=== PATIENT | male | born 1960 | race Caucasian/White ===

== ENCOUNTER 2024-09-13 12:01 | Emergency (ER) | payer BC, SELFPAY ==
--- NOTE | ~2024-09-13 | CT_ITS ---
Procedure: CTA abd aorta runoff Ordering provider: Annalisa Caro MD History: . Concern for ischemic left lower extremity . Comparison: None. Technique: CT angiogram abdomen and pelvis was performed following timed intravenous injection of con trast. Thin slice axial images and reformatted coronal images were obtained. Three dimensional reform atted images were also obtained using a [employer] workstation. Radiation reduction technique utilized. The dose-length product was 1418.39 mGy-cm. 150 mL Omnipaque 350 was given IV. FINDINGS: Visualized lower chest: Dependent atelectatic changes. Calcified granuloma in the right lower lobe an d lingula. UPPER ABDOMINAL ORGANS: Liver: Fat infiltration. Gallbladder: Normal. Spleen: Normal. Stomach: Normal. Pancreas: Normal. Slightly prominent pancreatic duct. Adrenals: Normal. Kidneys: Enhancing mass is seen in the right kidney lower pole suggestive of renal cell carcinoma bonita suring 2.2 x 2.2 cm. PELVIC ORGANS: The bladder is normal. Slightly enlarged prostate. BOWEL AND MESENTERY: Colon: No evidence of diverticulitis. Normal appendix. Small Bowel: Normal. No obstruction. Peritoneum/mesentery: No free air or free fluid. No mesenteric lymphadenopathy. RETROPERITONEUM: No retroperitoneal lymphadenopathy. ABDOMINAL AORTA: Atherosclerotic changes are seen in the distal aorta. No dissection. Lucency seen in the portal vein is most likely mixing of blood. Clinical correlation and follow-up ad vised. ILIAC ARTERIES AND BRANCHING VESSELS: Atherosclerotic changes in the common iliac arteries with focal dissection in the proximal right iliac artery. narrowing of the left external iliac artery by about 40-50%. Narrowing of the right external iliac artery with about 50% is also noted. RENAL ARTERIES: Normal caliber. OTHER BRANCHING VESSELS OF THE ABDOMINAL AORTA AND THE MESENTERIC ARTERIES: Normal. The superficial soft tissues of the abdomen and pelvis are normal. Age appropriate degenerative cota es of the spine. LOWER EXTREMITIES: COMMON FEMORAL ARTERIES: Mild atherosclerotic changes with no significant narrowing. FEMORAL ARTERIES: Mild narrowing in the distal femoral arteries of about 20%. BILATERAL PROFUNDA FEMORA: Normal. POPLITEAL ARTERIES: Normal. TRIFURCATION AND THE POSTERIOR/ANTERIOR TIBIAL AND PERONEAL ARTERIES: Normal. FLOW TO THE FOOT: Flow demonstrated within the anterior and posterior tibial arteries below the ankle . BONES AND SOFT TISSUES: Unremarkable. IMPRESSION: Right lower pole mass suggestive of measuring 2.2 x 2.2 cm. renal cell carcinoma. Atherosclerotic changes with narrowing of the external iliac arteries near to the bifurcation of the common carotid artery by about 40-50%. 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 Flow is seen down to the level of the ankle joints. About 20% narrowing seen in the distal SFA. Fat infiltration of the liver. Reviewed, dictated and finalized at location A. IMPRESSION: Right lower pole mass suggestive of measuring 2.2 x 2.2 cm. renal cell carcinom a. Atherosclerotic changes with narrowing of the external iliac arteries near to t he bifurcation of the common carotid artery by about 40-50%. Focal dissection s een at the origin of the right. Flow is seen down to the level of the ankle joints. About 20% narrowing seen in the distal SFA. Fat infiltration of the liver.
--- NOTE | ~2024-09-13 | US_ITS ---
ULTRASOUND ANKLE BRACHIAL INDEX Ordering provider: Annalisa Caro MD History: . Concern for ischemic limb . Comparison: None. FINDINGS: Right brachial systolic blood pressure: 142 mmHg Left brachial systolic blood pressure: 148 mmHg Right ankle systolic blood pressure: 131 mmHg Left ankle systolic blood pressure: 156 mmHg Right ankle/arm index (DANNIELLE): 0.89 Left ankle/arm index (DANNIELLE): 1.05 Note regarding DANNIELLE: --Normal= 1.0 or slightly greater. --Claudication (moderate stenosis or occlusive state)= 0.6 to 0.9. --Rest pain (severe occlusive states)= 0.5 or less. IMPRESSION: Moderate stenosis or occlusive state on the right side. Normal left DANNIELLE. Reviewed, dictated and finalized at location A.
[2024-09-13 12:03] VITALS: BP 154/85; PULSE 84; RESP 20; TEMP 36.1; O2SAT 95
--- OUTSIDE RECORDS SUMMARY | 2024-09-13 12:04 | XMS_ITS | Clinical Summary ---
Author Organization [facility] Address [address] [place] [address] Care Team Providers Care Water Meter Reader Name Role Phone Unavailable Primary Care Provider Unavailabl e Social History Tobacco Use Types Packs/Day Years Used Date Smoking Tobacco: Never Assessed Sex and Gender Information Value Date Recorded Sex Assigned at Not on file Legal Sex Male 5:01 PM CDT Gender Identity Not on file Sexual Orientation Not on file Plan of Treatment Health Maintenance Due Date Last Done Comments Colorectal Cancer Screening Colonoscopy (10 Years) 1958 Hepatitis C 1976 DTaP, Tdap and Td Vaccines ( 1 - Tdap) 1977 Pneumococcal Vaccine: 50+ Ye ars (1 of 1 - PCV) 2008 Zoster Vaccines (1 of 2) 2008 COVID-19 Vaccine ( - 2023-2 5 season) 2023 RSV Immunization or 60+ Years (1 - 1-dose 75+ series) 2033 Meningococcal B Vaccine Aged Out No l onger eligible based on patient's age to complete this topic Meningococcal Vaccine Aged Out No angelito liliya eligible based on patient's age to complete this topic RSV Immunizations Under 20 Months Aged Out No longer eligible based on patient's age to complete this topic
--- OUTSIDE RECORDS SUMMARY | 2024-09-13 12:04 | XMS_ITS | CONTINUITY OF CARE DOCUMENT ---
Author Name breanna carlos Address Unknown Organization [facility] Address [id number] [place] [address] [address] [place] [address] Phone [phone] Care Team Providers Care Coat Operator Insulator Name Role Phone breanna carlos Unavailable Unavailable
[2024-09-13 13:15] VITALS: BP 136/88; PULSE 61; RESP 16; O2SAT 96
--- NOTE | 2024-09-13 13:54 | ED.GENADULT ---
HPI - General Adult General Chief complaint: Unspecified Stated complaint: sent by PCP after abnormal CT Time Seen by Provider: 09/13/24 13:00 Source: patient and family (partner) Mode of arrival: ambulatory Limitations: no limitations History of Present Illness HPI narrative: Patient presents after being sent by his primary care physician Dr. Watson whom he saw today. Patient complaining left-sided back buttock pain that radiates into his left leg. He reports left leg being numb particularly distally, from the knee down. He to [place] emergency department on Thursday CT scan performed but nothing was identified. No incontinence bowel or bladder. No DVT or PE. He prescribed Oxy and he took a dose at 10:30 a.m. and 12 noon and notes that only through taking these 2 doses today is his pain slightly better than it has been. Not on anticoagulation. He takes no other medications at home at baseline. He is a new patient to Dr Watson. Notes the pain comes in waves and it builds up in a way that reminds him of when his first was and having contractions and he could see them on the machine before they came. Related Data Allergies Allergy/AdvReac Type Severity Reaction Status Date / Time No Known Allergies Allergy Verified 09/13/24 13:17 Exam Narrative: GENERAL: Well-appearing, well-nourished, in moderate acute distress. HEAD: Normocephalic, atraumatic. EYES: Non injected, non icteric ENT: Nares clear, no rhinorrhea or epistaxis. NECK: Supple. CHEST: Speaking in full sentences. No respiratory distress. HEART: Regular rate and rhythm. Difficult to palpate a DP pulse in left foot. ABDOMEN/GI: Soft, nondistended. MISA performed, patient has sensation during this and normal rectal sphincter tone. EXTREMITIES: Normal range of motion. No lower extremity edema. 5/5 strength with bilateral ankle dorsiflexion plantar flexion, bilateral knee flexion extension, bilateral hip flexion, abduction, adduction. No palpable cord in left leg. Compartments are soft. SKIN: Dry, no rash. Leg is not erythematous or cyanotic. Left foot, ankle, distal monroy are cool, particularly compared to contralateral leg. NEURO: No focal deficits. Alert and oriented x3. 2+ patellar reflex on the right, 1+ patellar reflex on the left. PSYCH: Normal mood and affect. Tearful/nearly tearful Course Vital Signs Vital signs: Vital Signs Temperature 97.0 F L 09/13/24 12:03 Pulse Rate 84 09/13/24 12:03 Respiratory Rate 20 09/13/24 12:03 Blood Pressure 154/85 H 09/13/24 12:03 Pulse Oximetry 95 09/13/24 12:03 Oxygen Delivery Room Air 09/13/24 12:03 Temperature 97.5 F L 09/13/24 16:06 Pulse Rate 66 09/13/24 18:44 Respiratory Rate 15 09/13/24 18:44 Blood Pressure 145/97 H 09/13/24 18:44 Pulse Oximetry 98 09/13/24 18:44 Oxygen Delivery Room Air 09/13/24 12:03 Medical Decision Making MDM Narrative Medical decision making narrative: Patient presents with left hip/buttock pain that radiates down into his left leg in particular is complaining about paresthesias which leave his distal left leg numb, from the knee down. In the emergency department he is afebrile with vital signs notable for hypertension. Patient's CT scan obtained from outside emergency department at [place] uploaded into system. Given the concern for arterial ischemia based on paresthesias and the leg cooler than the other,, heparin initiated as 80 units/kilogram bolus followed by 18 units/kilogram per hour drip. Color doppler flow does appear to be present on bedside POCUS performed by myself. CBC and chemistry generally unremarkable. Dimer negative. Will not proceed with DVT study. Patient received Dilaudid for pain. I did discuss with the radiologist since the impression lists information about the carotid artery but this is a dictation error. He confirms that there is 40-50% narrowing as indicated in the body of the text. Similarly, the focal dissection that is mentioned is quite small, only a few mm. Patient had 180 mL on bladder scan followed by 118 after voiding (i.e. PVR). This is somewhat higher than expected. Patient felt that he had completely voided. Patient still having pain, Valium ordered. Spoke with patient's PCP, Dr Watson. He states the patient is new to him but renal cell cancer has been previously identified and patient also has a lung mass. I noted the findings of his CT scan which demonstrate atherosclerosis and some vascular disease for which patient would benefit from seeing a vascular surgeon in the future. He indicates that his primary concern was for cord compression based on his areflexia on exam and the intensity of pain patient was having in the office. Noted that I would discuss with NSGY. I did attempt to speak with radiologist, Dr Valladares, again to see if an over-read could be performed to particularly make specific commentary on negative findings of L spine/bones (although had been read as negative on initial read). Not available so I discussed with Dr Sanders. He did review the images and noted there were no notable findings although the protocol for these scans are different. Ultimately, it does not particularly matter as the diagnosis of cord compression is not based on CT imaging and thus, given it is not the gold standard for the diagnosis in question. Spoke with neurosurgery Dr Garnett and discussed patient's work up. She notes that 118cc urine as PVR dose not represent large volume retention so is of lower suspicion. Notes that patient would likely benefit from MRI but the acuity of performing this does not appear to be emergent and at this time reasonable to recommend outpatient. She notes a steroid taper would probably be useful. Patient given first dose of steroid in the ED and prescribed rest of course. Also prescribed Valium to be used QHS short course for muscle relaxation. Advised to follow-up with primary care physician and given strict emergency department return precautions. Differential Diagnosis Differential Diagnosis: Acute arterial ischemia/limb ischemia, peripheral vascular disease, DVT, cord compression/cauda equina, mononeuropathy/ polyneuropathy/radiculopathy Vital Signs Vital Signs: Vital Signs Temperature 97.0 F L 09/13/24 12:03 Pulse Rate 84 09/13/24 12:03 Respiratory Rate 20 09/13/24 12:03 Blood Pressure 154/85 H 09/13/24 12:03 Pulse Oximetry 95 09/13/24 12:03 Oxygen Delivery Room Air 09/13/24 12:03 Temperature 97.5 F L 09/13/24 16:06 Pulse Rate 66 09/13/24 18:44 Respiratory Rate 15 09/13/24 18:44 Blood Pressure 145/97 H 09/13/24 18:44 Pulse Oximetry 98 09/13/24 18:44 Oxygen Delivery Room Air 09/13/24 12:03 Lab Data Lab results reviewed: Yes I reviewed the patient's lab results. 09/13/24 14:26 09/13/24 14:26 Labs: Lab Results 09/13/24 09/13/24 Range/Units 14:26 15:42 WBC 8.5 (4.5-10.0) K/mm3 RBC 5.17 (4.6-6.20) M/mm3 Hgb 16.5 (14.0-18.0) g/dL Hct 48.3 (42.0-52.0) % MCV 93.4 (80-100) fl MCH 31.9 (26-34) pg MCHC 34.2 (32-36) g/dl RDW 13.2 (11.5-14.5) % Plt Count 228 (150-375) k/mm3 MPV 10.5 H (7.4-10.4) fl Immature Gran % (Auto) 0.4 (0-0.5) % Neut % (Auto) 56.1 (45.5-73.1) % Lymph % (Auto) 32.7 (18.3-44.2) % [place] % (Auto) 7.9 (2.6-8.5) % Eos % (Auto) 2.1 (0-4.4) % Baso % (Auto) 0.8 (0.2-1.2) % Lymph # (Auto) 2.77 (0.9-3.2) K/mm3 [place] # (Auto) 0.7 H (0.1-0.6) K/mm3 Eos # (Auto) 0.2 (0-0.3) K/mm3 Baso # (Auto) 0.1 (0.0-0.1) K/mm3 Abs Immat Gran (auto) 0.03 (0.00-0.031) K/mm3 Absolute Neuts (auto) 4.8 (1.3-6.7) K/mm3 Absolute Nucleated RBC 0.000 (0.0-0.012) K/mm3 Nucleated RBC % 0.0 (0.0-0.2) % PT 13.6 (11.1-14.7) Seconds INR 1.0 APTT 25.6 (22.3-36.8) Seconds D-Dimer 0.37 (<0.48) ug/mL Sodium 139 (137-145) mmol/L Potassium 4.0 (3.4-5.0) mmol/L Chloride 105 (98-107) mmol/L Carbon Dioxide 26 (22-30) mmol/L Anion Gap 8 (4-12) mmol/L BUN 5 L (9-20) mg/dL Creatinine 0.82 (0.7-1.3) mg/dL Estim Creat Clear Calc 80 ml/min Estimated GFR > 60 (59 - ) Glucose 84 (65-110) mg/dL Calcium 8.9 (8.4-10.2) mg/dL Total Bilirubin 0.7 (0.2-1.3) mg/dL AST 43 (17-59) U/L ALT 49 (6-50) U/L Alkaline Phosphatase 92 (38-126) U/L Total Creatine Kinase 108 (55-170) U/L Total Protein 8.0 (6.3-8.2) g/dL Albumin 4.6 (3.5-5.1) g/dL Urine Color Yellow (Yellow) Urine Appearance Clear (Clear) Urine pH 6.0 (5.0-9.0) Ur Specific [place] 1.040 H (1.001-1.035) Urine Protein Negative (Negative) mg/dL Urine Glucose (UA) Negative (Negative) mg/dL Urine Ketones Negative (Negative) mg/dL Ur Blood (Man) Negative (Negative) Urine Nitrate Negative (Negative) Urine Bilirubin Negative (Negative) Urine Urobilinogen 0.2 (<2.0) mg/dL Leukocyte Esterase Rfl Negative (Negative) ANDREEA/UL Imaging Data Radiologist's impression: Impressions Aorta w/Runoff CTA 09/13/24 15:06 IMPRESSION: Right lower pole mass suggestive of measuring 2.2 x 2.2 cm. renal cell carcinoma. Atherosclerotic changes with narrowing of the external iliac arteries near to the bifurcation of the common carotid artery by about 40-50%. 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 Flow is seen down to the level of the ankle joints. About 20% narrowing seen in the distal SFA. Fat infiltration of the liver. ADDENDUM: 09/13/24 [id number] Please ignore the previous impression IMPRESSION: Right kidney lower pole mass suggestive of measuring 2.2 x 2.2 cm. renal cell carcinoma. Atherosclerotic changes with narrowing of the external iliac arteries near to the bifurcation of the common iliac artery by about 40-50%. 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 Flow is seen down to the level of the ankle joints. About 20% narrowing seen in the distal SFA. Fat infiltration of the liver. Ankle Brachial Index 09/13/24 15:52 IMPRESSION: Moderate stenosis or occlusive state on the right side. Normal left DANNIELLE. Discharge Plan Discharge Clinical Impression: Mass of right kidney, Atherosclerosis of abdominal aorta, Dissection of right iliac artery, Claudication of right lower extremity, Lower extremity pain, left, Left leg paresthesias Patient Disposition: Home Condition: Stable Instructions: Antibiotic Form, Peripheral Vascular Disease (ED), Paresthesia (ED), Lumbar Radiculopathy (ED), Lower Back Exercises (ED) Additional Instructions: Acetaminophen/Tylenol (maximum 4000 mg per day) is safe to take with NSAIDs (ibuprofen/Motrin) for pain relief. The Valium works as a muscle relaxer and the steroid targets inflammation. Follow up with your PCP as, if not improving, an MRI is likely indicated. Return to the ER if you have increased pain in your back, you develop lower extremity weakness/paralysis, you have numbness or tingling in your private parts, or you are unable to control your ability to urinate/stool. Patient Language: Georgian Prescriptions: New prednisone 10 mg tablets,dose pack See Rx Instructions .ROUTE .COMPLEX 7 Days Qty: 20 0RF Taper: Prednisone Taper from 60 mg;12 days 60 mg DAILY for 2 Days and 0 Hour 50 mg DAILY for 2 Days and 0 Hour 40 mg DAILY for 2 Days and 0 Hour 30 mg DAILY for 2 Days and 0 Hour 20 mg DAILY for 2 Days and 0 Hour 10 mg DAILY for 2 Days and 0 Hour Rx Instructions: Take 40mg (4 tabs) on days 1 and 2, 30mg ( 3 tabs) on days 3 and 4, 20mg (2 tabs) on days 5 and 6, and 10mg (1 tab (on 7 and 8), starting 09/14; Dispense sufficient (20) diazepam [Valium] 5 mg tablet 5 mg PO HS PRN (Reason: muscle spasm) Qty: 7 0RF acetaminophen 500 mg capsule 1,000 mg PO Q6H PRN (Reason: pain) Qty: 30 0RF ibuprofen 600 mg tablet 600 mg PO TID PRN (Reason: pain) Qty: 30 0RF Follow-up/Referrals: Flori,Abdi Crews MD [Primary Care Provider] - Stand Alone Forms: Work/School Release IP Time of Disposition: 18:47
--- OUTSIDE RECORDS SUMMARY | 2024-09-13 13:59 | XMS_ITS | CONTINUITY OF CARE DOCUMENT ---
Author Name breanna carlos Address Unknown Organization [facility] Address [address] [place] [address] [address] [place] [address] Phone [phone] Care Team Providers Care Applied Marine Physics Professor Name Role Phone breanna carlos Unavailable Unavailable
[2024-09-13 14:23] VITALS: BP 144/87; PULSE 65; RESP 16; O2SAT 98
[2024-09-13] MEDS: HYDROmorphone HCL INJ (*CRX) 2 MG/ML VIAL 0.5 MG IV PUSH (14:23)
[2024-09-13 14:34] LABS: Basophils Absolute Auto 0.1 K/mm3 (0.0-0.1); Basophils Percent Auto 0.8 % (0.2-1.2); Eosinophils Absolute Auto 0.2 K/mm3 (0-0.3); Eosinophils Percent Auto 2.1 % (0-4.4); Hematocrit 48.3 % (42.0-52.0); Hemoglobin 16.5 g/dL (14.0-18.0); Immature Granulocyte Absolute 0.03 K/mm3 (0.00-0.031); Immature Granulocyte Percent A 0.4 % (0-0.5); Lymphocytes Absolute Auto 2.77 K/mm3 (0.9-3.2); Lymphocytes Percent Auto 32.7 % (18.3-44.2); Mean Corpuscular HGB Conc 34.2 g/dl (32-36); Mean Corpuscular Hemoglobin 31.9 pg (26-34); Mean Corpuscular Volume 93.4 fl (80-100); Mean Platelet Volume 10.5 fl (7.4-10.4); Monocytes Absolute Auto 0.7 K/mm3 (0.1-0.6); Monocytes Percent Auto 7.9 % (2.6-8.5); Neutrophils Absolute Auto 4.8 K/mm3 (1.3-6.7); Neutrophils Percent Auto 56.1 % (45.5-73.1); Platelet Count Result 228 k/mm3 (150-375); Red Blood Count 5.17 M/mm3 (4.6-6.20); Red Cell Distribution Width 13.2 % (11.5-14.5); White Blood Count 8.5 K/mm3 (4.5-10.0)
[2024-09-13 14:42] LABS: Alanine Aminotransferase 49 U/L (6-50); Albumin Level 4.6 g/dL (3.5-5.1); Alkaline Phosphatase 92 U/L (38-126); Anion Gap 8 mmol/L (4-12); Aspartate Amino Transferase 43 U/L (17-59); Bilirubin,Total 0.7 mg/dL (0.2-1.3); Blood Urea Nitrogen 5 mg/dL (9-20); Calcium 8.9 mg/dL (8.4-10.2); Carbon Dioxide 26 mmol/L (22-30); Chloride 105 mmol/L (98-107); Estimated CRCL calculation 80 ml/min; Estimated Glomerular Filt Rate > 60; Glucose 84 mg/dL (65-110); Sodium 139 mmol/L (137-145)
[2024-09-13 14:51] LABS: Prothrombin Time 13.6 Seconds (11.1-14.7)
[2024-09-13 14:52] LABS: Partial Thromboplastin Time 25.6 Seconds (22.3-36.8)
[2024-09-13 15:11] LABS: D Dimer 0.37 ug/mL (<0.48)
[2024-09-13 15:49] LABS: Add Urine Microscopic? NO; Appearance Urine Clear (Clear); Bilirubin Urine Negative (Negative); Blood Urine Negative (Negative); Color Urine Yellow (Yellow); Glucose Urine UA Negative (Negative); Ketones Urine Negative (Negative); Leukocyte Esterase Ur Negative LEU/UL (Negative); Nitrate Urine Negative (Negative); Protein Urine Negative (Negative); Urobilinogen Urine 0.2 mg/dL (<2.0)
[2024-09-13] MEDS: HEPARIN SOD/D5W 100 UNITS/ML 25,000 UNITS/250 ML BAG 14 UNITS IV CONT (16:00)
[2024-09-13] MEDS: HEPARIN SODIUM 5,000 UNITS/ML VIAL 6500 UNITS IV PUSH (16:03)
[2024-09-13 16:06] VITALS: BP 131/74; PULSE 64; RESP 16; TEMP 36.4; O2SAT 96
[2024-09-13 16:46] LABS: Creatine Kinase 108 U/L (55-170)
[2024-09-13 16:53] VITALS: BP 130/83; PULSE 72; RESP 16; O2SAT 97
[2024-09-13] MEDS: diazePAM INJ (*CRX) 10 MG/2 ML SYRINGE 5 MG IV PUSH (16:58)
[2024-09-13 18:44] VITALS: BP 145/97; PULSE 66; RESP 15; O2SAT 98
[2024-09-13] MEDS: predniSONE 20 MG TABLET 40 MG PO (18:44)
== END 2024-09-13 18:54 | disposition home or self-care (01) ==
PROVIDERS: Emergency Provider Student in an Organized Health Care Education/Training Program; PCP Internal Medicine
DX: I77.72 Dissection of iliac artery (principal); I70.0 Atherosclerosis of aorta; I73.9 Peripheral vascular disease, unspecified; R20.2 Paresthesia of skin; M79.605 Pain in left leg; C64.1 Malignant neoplasm of right kidney, except renal pelvis; K76.0 Fatty (change of) liver, not elsewhere classified
CPT/HCPCS: 36415; 75635; 80053; 81003; 82550; 85025; 85380; 85610; 85730; 93922; 96365; 96366; 96375; 99284; J1171; J1644; J3360; J7512; Q9967

== ENCOUNTER 2024-09-19 11:15 | Emergency (ER) | payer BC, SELFPAY ==
--- NOTE | ~2024-09-19 | CT_ITS ---
CT lumbar spine wo con Ordering provider: Yaima Urbina PA-C History: 64 years Male with . lumbar radiculopathy . Comparison: None. Technique: CT lumbar spine without contrast. Automated exposure control and iterative reconstruction technique were employed. The dose-length product was 872.13 mGy-cm. FINDINGS: VERTEBRAE: Normal height and alignment. No subluxation or visible acute fracture. Sclerotic area in L 3 spinous process. Sclerotic foci In the right side of the sacrum. Follow-up advised. DISC SPACES: Well maintained. T12-L1: No stenosis. L1-L2: No stenosis. Mild diffuse disc bulge. L2-L3: No stenosis. Mild diffuse disc bulge. Left facet joint disease. L3-L4: No stenosis. Mild diffuse disc bulge. L4-L5: Mild spinal canal stenosis.. Diffuse disc bulge with bilateral narrowing of the foramina more on the left side with left nerve root compression. L5-S1: No stenosis. PARASPINOUS SOFT TISSUES: Mild atheromatous disease of the abdominal aorta. IMPRESSION: No fracture or dislocation. Multilevel disc bulges with narrowing of the left foramina at the level of L4-L5 with highly suggesti ve of nerve root compression. MRI is better for evaluation. Mild spinal canal stenosis at the level o f L4-L5. Reviewed, dictated and finalized at location A. IMPRESSION: No fracture or dislocation. Multilevel disc bulges with narrowing of the left foramina at the level of L4-L 5 with highly suggestive of nerve root compression. MRI is better for evaluatio n. Mild spinal canal stenosis at the level of L4-L5.
--- OUTSIDE RECORDS SUMMARY | 2024-09-19 11:18 | XMS_ITS | Continuity of Care Document ---
Author Organization [facility] Address [address] [place] [address] [place] [address] Phone Care Team Providers Care Rn Infusion Name Role Phone Jose David Novoa DO Unavailable Unavailable Advance Directives Directive Yes / No Effective Date File Name No Information Encounters Encounter Description Practice Location Reason(s) For Visit Diagnoses Date Provider Providers Copied on Encounter [facility], [address], [place], [place], [id number], [place] tel:[phone] [facility] No Information [facility]. [address] [facility], [place], [address], [place]. tel:[phone] Family History Family Member Type Diagnosis Age At Onset No Information Payers Payer name Insurance type Covered constitution party ID Authoriza tion(s) No Information Social History Type Description Quantity Date Captured Comments Sex Male Smoking Status No Information Chief Complaint And Reason For Visit No Information Reason For Referral Reason For Referral No Information History Of Present Illness Encounter Date Complaint History Of Prese nt Illness No Information Functional Status Date Functional Assessmen t No Information Instructions Date Instruction Additional Infor mation No Information Assessments Type Assessment Date No Information Patient Care Teams Name Effective Dates (start - stop) Status Members No Information
--- OUTSIDE RECORDS SUMMARY | 2024-09-19 11:18 | XMS_ITS | Continuity of Care Document ---
Author Organization [facility] Address [address] [place] [address] Phone Care Team Providers Care Riding Double Name Role Phone Unavailable Unavailable Unavailable Allergies, Adverse Reactions, Alerts Substance Reaction Status Criticality No Known Allergies Active No Inform ation Medications Medication Instructions Dosage Effective Dates (start - stop) Status Comments pravastatin 40 mg tablet take 1 tablet by oral route every day 40 MG - Active prednisone 40 mg ORAL take one tablet by mouth daily for five days - Active levofloxacin 500 mg tablet take 1 tablet by oral route every 24 hours 500 MG - Active meloxicam 7.5 mg tablet take 1 tablet by oral route every day 7.5 MG - Active albuterol sulfate HFA 90 mcg/actuation aerosol inhaler inhale 2 puff by inhalation route every 4 - 6 hours as needed - Active Spiriva with HandiHaler 18 mcg & inhalation capsules inhale 1 capsule by inhalation route every day using 2 inhalations via handihaler - Active pravastatin 20 mg tablet take 1 tablet by oral route every day 20 MG - No Longer Active Procedures Procedure Date Alcohol and/or drug screening 5 X-RAY EXAM, CHEST, FRONTAL/LATERAL, 2 EWS X-RAY EXAM, KNEE, ROSETTA, STANDING AP Immun admin-adult or WO counseling-[place] [address]55 Pneumococcal polysaccharide vaccine, 23- valent (Pneumo-Vax 23) to age 2+ Immun admin-adult or WO counseling - fir st vaccine/toxoid TDAP VACCINE 7 YR + IM OFFICE OUTPT EST 25 MIN BLOOD COUNT; COMPLETE (CBC), AUTOMATED D IFF COMPRE METAB PANEL LIPID PANEL COLLECTION OF VENOUS BLOOD BY VENIPUNCTU RE HEMOGLOBIN; GLYCOSYLATED (A1C) 15 COLLECTION OF CAPILLARY BLOOD SPECIMEN ( EG, FINGER, HEEL, EAR STICK) OFFICE/OUTPATIENT VISIT, EST COLLECTION OF VENOUS BLOOD BY VENIPUNCTU RE OFFICE OUTPT EST 25 MIN Voided Encounter Voided Encounter OFFICE OUTPT EST 25 MIN OFFICE OUTPT EST 25 MIN OFFICE/OUTPATIENT VISIT, NEW Voided Encounter Advance Directives Directive Yes / No Effective Date File Name No Information Encounters Encounter Description Practice Location Reason(s) For Visit Diagnoses Date Provider Providers Copied on Encounter [facility], [address], [place], [place], [address] , [place] tel: [phone] [facility] No Information 5 No Information OFFICE OUTPT EST 25 MIN [facility], [address], [place], [place], [address] , [place] tel: [phone] [facility] Routine medical examHyperlipide miaCOPDArthriti s 5 No Information OFFICE/OUTPA TIENT VISIT, EST [facility], [address], [place], [place], [address] , [place] tel: [phone] [facility] Behavioral Health follow up visits (chief complaint)h eadache (chief complaint)d epression (chief complaint) Episodic Cluster HeadacheOther abnormal glucoseOther and unspecified hyperlipidemiaD iabetes Mellitus Type 2, Uncomplicated 3 No Information [facility], [address], [place], [place], [address] , [place] tel: [phone] [facility] Laboratory examination, unspecifiedRout ine general medical examination at a health care facility 3 No Information OFFICE OUTPT EST 25 MIN [facility], [address], [place], [place], [address] , [place] tel: [phone] [facility] follow up visit (chief complaint)T MJ pain (chief complaint) Temporomandibul ar joint disorders, unspecified 3 No Information [facility], [address], [place], [place], [address] , [place] tel: [phone] [facility] No Information 3 No Information OFFICE OUTPT EST 25 MIN [facility], [address], [place], [place], [address] , [place] tel: [phone] [facility] folow up visit (chief complaint)T MJ joint pain (chief complaint) Temporomandibul ar joint disorders, unspecifiedDepr essive disorder, NECNondependent tobacco use disorder 3 No Information OFFICE OUTPT EST 25 MIN [facility], [address], [place], [place], [address] , [place] tel: [phone] [facility] follow up visit (chief complaint)e ar discomfort (chief complaint)a rthralgias (chief complaint) Temporomandibul ar joint disorders, unspecifiedOtal bassem, unspecified 3 No Information OFFICE/OUTPA TIENT VISIT, NEW [facility], [address], [place], [place], [address] , [place] tel: [phone] [facility] initial visit (chief complaint)e ar discomfort (chief complaint)p hysical exam (chief complaint)d epression (chief complaint) Unspecified otitis mediaDepressive disorder, NECNondependent tobacco use disorderRoutine general medical examination at a health care facility 3 No Information [facility], [address], [place], [place], [address] , [place] tel: [phone] [facility] No Information 3 No Information Family History Family Member Type Diagnosis Age At Onset Mother Problem (finding) malignant neop lasm of cervix uteri 48 Mother Problem (finding) hypertension Paternal grandfather Problem (finding) coronary arteri osclerosis Immunizations Vaccine Date Status Comments Pneumo (2 yrs or older)(PPV) administered Source: New Immunization Record Tdap administered Source: New Imm unization Record Tdap pending Source: New Imm unization Record Payers Payer name Insurance type Covered constitution party ID Authoriza tion(s) Medicare PPS [id number] Medicare PPS [id number] Medicare PPS [id number] Social History Type Description Quantity Date Captured Comments Alcohol Use Details Unknown Caffeine Use Details Unknown Tobacco Use Status Smoking Status No Information Sex Male Chief Complaint And Reason For Visit No Information Reason For Referral Reason For Referral No Information Plan Of Treatment Date Type Action Status Goal ALT. Due on due Goal BMP fasting. Due on due Goal AST. Due on due Goal Urinalysis. Due on 13 due Goal PSA. Due on due Goal AST. Due on due Goal BMP fasting. Due on due Goal Urinalysis. Due on 13 due Goal PSA. Due on due Goal ALT. Due on due Goal Lipid Panel. Due on due Goal AST. Due on due Goal Urinalysis. Due on due Goal BMP fasting. Due on due Goal PSA. Due on due Goal ALT. Due on due Referral Referred To: [facility] Colonoscopy [address], [place], [phone] Ordered: Referrals: Gastroenterology. [facility] Colonoscopy. Evaluate and treat ordered Referral Referred To: [facility] [address] [place], [phone] Ordered: Referral: [facility]. ENT. Evaluate and treat. Appointment date/timeframe: 09/29/2012 ordered Referral Referred To: [facility] [address] [place], [phone] Ordered: Referral: [facility]. ENT. Appointment date/timeframe: 08/16/2012 ordered Unknown Immunization Tdap ordered Future Order: Lab Order HEPATIC FUNCTION PANEL ([id number]), Appointment on: , Sent on: Sent Future Order: Lab Order POC GLUC OSE ([id number]), Appointment on: , Sent on: Sent Future Order: Lab Order POC HEMO GLOBIN A1C ([id number]), Appointment on: , Sent on: Sent Future Order: Lab Order LIPID PA TREMAINE ([id number]), Appointment on: , Sent on: Sent Future Order: Lab Order Glucose (Gluc), Appointment on: Ordered History Of Present Illness Encounter Date Complaint History Of Prese nt Illness Mr. Wooten is a 53 yo M PMH HLD and depression who presents with two months of congestion. Two months ago he developed cough, chest discomfort and increased sputum prodution. Now he has developed fevers, chills, and night sweats. Nothing like this has ever happened to him before. He states that the chest pain he feels is as if it is under his ribs. He admits to severe fatigue recently as well. He also complains of shoulder, knee, right hip and right ankle pain. He broke his foot in 2005 playing basketball and has had pain there ever since. His shoulder pain started all of sudden in February of 2014, without trauma. It hurt worst when he coughed. It was self limited but associated with inability to raise his arm or put his arm behind his back. His hip pain has been ongoing for fifteen years. He also never injured that but associates it with chronic injury from sports pains. To alleviate this pain, he takes 9-10 Ibuprofen daily, which has recently lead to significant nausea. Functional Status Date Functional Assessmen t No Information Medications Administered Medication Instructions Dosage Effective Dates (start - stop) Status Comments pravastatin 20 mg tablet take 1 tablet by oral route every day 20 MG - No Longer Active Instructions Date Instruction Additional Infor amaya -We will prescribe a stronger NSAID-Please avoid taking more than prescribed-We will perform knee x-ray today to examine for arthritis Related to Arthritis -You are likely expe riencing a COPD exacerbation-We will have to wait until after this acute infection to give you PFTs-For now, we will prescribe albuterol to help with the shortness of breath-We will perform chest x-ray and prescribe you an antibiotic as well as inhalers Related to COPD -We will check lipid s today and start a medication if they are elevated again Related to Hyperlipidemia -We will give you Td ap and Pneumovax -Please call [phone] to schedule Eye and Dental exams-We will give you a referral for Colonoscopy -We will also perform basic lab testing today: CBC, CMP, A1C -Please return in two months Related to Routine medical exam Assessments Type Assessment Date No Information Patient Care Teams Name Effective Dates (start - stop) Status Members No Information
--- OUTSIDE RECORDS SUMMARY | 2024-09-19 11:18 | XMS_ITS | CONTINUITY OF CARE DOCUMENT ---
Author Name breanna carlos Address Unknown Organization [facility] Address [id number] [place] [address] [address] [place] [address] Phone [phone] Care Team Providers Care Manager Validation Name Role Phone breanna carlos Unavailable Unavailable
[2024-09-19 11:32] VITALS: BP 153/83; PULSE 62; RESP 20; TEMP 36.6; O2SAT 98
--- NOTE | 2024-09-19 13:30 | ED.LOWEXIN ---
HPI - Extremity Injury (Lower) General Chief Complaint: Extremity Injury, Lower Stated Complaint: left groin pain Time Seen by Provider: 09/19/24 15:01 Focused HPI: 64-year-old male presents with his at bedside for pain that goes from his left buttock into his left groin and down his left leg into the dorsum of his foot for about a week. He denies recent injury or trauma. Patient was evaluated in our ED on 09/13/2024 for same complaint and had a CTA abdominal aorta with runoff which showed the following: ADDENDUM: 09/13/24 1188 Please ignore the previous impression IMPRESSION: Right kidney lower pole mass suggestive of measuring 2.2 x 2.2 cm. renal cell carcinoma. Atherosclerotic changes with narrowing of the external iliac arteries near to the bifurcation of the common iliac artery by about 40-50%. 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 Flow is seen down to the level of the ankle joints. About 20% narrowing seen in the distal SFA. Fat infiltration of the liver. Patient was discharged home with steroids, Valium, Tylenol ibuprofen which she has been taking with minimal improvement. Presents today because he is almost out of his medications and his pain is still very severe. He followed up with his PCP, Dr. Cardona, and is reportedly scheduled for a MRI of his lumbar spine tomorrow, however is concerned that his insurance may not cover this. He denies saddle anesthesia, bowel or bladder incontinence, urinary tension. He and his both note that they are concerned he may have a blood clot in his left leg because they have noticed swelling and pain in his calf and ankle. GENERAL: Well-appearing, well-nourished, and in no acute distress. HEAD: Normocephalic, atraumatic. CHEST: Clear to auscultation. ?No respiratory distress. BACK: Tenderness to the lumbar spine without crepitus, step-offs or deformities. No saddle anesthesia. EXT: No edema noted bilaterally. Left DP pulse 2 +. Extremities pink, warm and dry HEART: Regular rate and rhythm.? NEURO: ?Alert and oriented x3. Patient screened in triage and initial orders placed.? ?Additional care and disposition to be based upon?diagnostic testing and treatment. Related Data Allergies Allergy/AdvReac Type Severity Reaction Status Date / Time No Known Allergies Allergy Verified 09/13/24 13:17 Course Vital Signs Vital signs: Vital Signs Temperature 97.8 F 09/19/24 11:32 Pulse Rate 62 09/19/24 11:32 Respiratory Rate 20 09/19/24 11:32 Blood Pressure 153/83 H 09/19/24 11:32 Pulse Oximetry 98 09/19/24 11:32 Oxygen Delivery Room Air 09/19/24 11:32 Temperature 97.8 F 09/19/24 11:32 Pulse Rate 80 09/19/24 17:33 Respiratory Rate 16 09/19/24 17:33 Blood Pressure 123/79 09/19/24 17:33 Pulse Oximetry 100 09/19/24 17:33 Oxygen Delivery Room Air 09/19/24 11:32 MDM - Extremity Injury (Lower) Lab Data 09/19/24 13:48 09/19/24 13:48 Labs: Lab Results 09/19/24 Range/Units 13:48 WBC 13.4 H (4.5-10.0) K/mm3 RBC 4.94 (4.6-6.20) M/mm3 Hgb 15.9 (14.0-18.0) g/dL Hct 47.2 (42.0-52.0) % MCV 95.5 (80-100) fl MCH 32.2 (26-34) pg MCHC 33.7 (32-36) g/dl RDW 13.7 (11.5-14.5) % Plt Count 253 (150-375) k/mm3 MPV 10.3 (7.4-10.4) fl Immature Gran % (Auto) 0.9 H (0-0.5) % Neut % (Auto) 77.0 H (45.5-73.1) % Lymph % (Auto) 15.3 L (18.3-44.2) % [place] % (Auto) 6.0 (2.6-8.5) % Eos % (Auto) 0.4 (0-4.4) % Baso % (Auto) 0.4 (0.2-1.2) % Lymph # (Auto) 2.06 (0.9-3.2) K/mm3 [place] # (Auto) 0.8 H (0.1-0.6) K/mm3 Eos # (Auto) 0.1 (0-0.3) K/mm3 Baso # (Auto) 0.1 (0.0-0.1) K/mm3 Abs Immat Gran (auto) 0.12 H (0.00-0.031) K/mm3 Absolute Neuts (auto) 10.3 H (1.3-6.7) K/mm3 Absolute Nucleated RBC 0.000 (0.0-0.012) K/mm3 Nucleated RBC % 0.0 (0.0-0.2) % PT 13.2 (11.1-14.7) Seconds INR 1.0 APTT 22.7 (22.3-36.8) Seconds D-Dimer 0.42 (<0.48) ug/mL Sodium 140 (137-145) mmol/L Potassium 3.7 (3.4-5.0) mmol/L Chloride 105 (98-107) mmol/L Carbon Dioxide 25 (22-30) mmol/L Anion Gap 10 (4-12) mmol/L BUN 10 D (9-20) mg/dL Creatinine 0.79 (0.7-1.3) mg/dL Estim Creat Clear Calc 83 ml/min Estimated GFR > 60 (59 - ) Glucose 113 H (65-110) mg/dL Calcium 8.6 (8.4-10.2) mg/dL Magnesium 2.3 (1.6-2.3) mg/dL Total Bilirubin 0.6 (0.2-1.3) mg/dL AST 43 (17-59) U/L ALT 60 H (6-50) U/L Alkaline Phosphatase 81 (38-126) U/L Total Protein 7.0 (6.3-8.2) g/dL Albumin 4.3 (3.5-5.1) g/dL Discharge Plan Discharge Clinical Impression: Sciatica Patient Disposition: Home Condition: Stable Instructions: Lumbar Radiculopathy (ED) Patient Language: Sinhala Prescriptions: No Action prednisone 10 mg tablets,dose pack See Rx Instructions .ROUTE .COMPLEX 7 Days Qty: 20 0RF Taper: Prednisone Taper from 60 mg;12 days 60 mg DAILY for 2 Days and 0 Hour 50 mg DAILY for 2 Days and 0 Hour 40 mg DAILY for 2 Days and 0 Hour 30 mg DAILY for 2 Days and 0 Hour 20 mg DAILY for 2 Days and 0 Hour 10 mg DAILY for 2 Days and 0 Hour Rx Instructions: Take 40mg (4 tabs) on days 1 and 2, 30mg ( 3 tabs) on days 3 and 4, 20mg (2 tabs) on days 5 and 6, and 10mg (1 tab (on and ), starting 09/14; Dispense sufficient (20) diazepam [Valium] 5 mg tablet 5 mg PO HS PRN (Reason: muscle spasm) Qty: 7 0RF acetaminophen 500 mg capsule 1,000 mg PO Q6H PRN (Reason: pain) Qty: 30 0RF ibuprofen 600 mg tablet 600 mg PO TID PRN (Reason: pain) Qty: 30 0RF Follow-up/Referrals: Flori,Abdi Crews MD [Primary Care Provider] -
--- OUTSIDE RECORDS SUMMARY | 2024-09-19 13:31 | XMS_ITS | Continuity of Care Document ---
Author Organization [facility] Address [address] [place] [address] [place] [address] Phone Care Team Providers Care Commercial Makeup Artist Name Role Phone Jose David Novoa DO Unavailable Unavailable Advance Directives Directive Yes / No Effective Date File Name No Information Encounters Encounter Description Practice Location Reason(s) For Visit Diagnoses Date Provider Providers Copied on Encounter [facility], [address], [place], [place], [address], [place] tel:[phone] [facility] No Information [facility] [address] [facility], [place], [address], [place]. tel:[phone] Family History Family Member Type Diagnosis Age At Onset No Information Payers Payer name Insurance type Covered republican ID Authoriza tion(s) No Information Social History [...]
--- OUTSIDE RECORDS SUMMARY | 2024-09-19 13:31 | XMS_ITS | CONTINUITY OF CARE DOCUMENT ---
Author Name breanna carlos Address Unknown Organization [facility] Address [address] [place] [address] [address] [place] [address] Phone [phone] Care Team Providers Care Cover Stitch Machine Operator Name Role Phone breanna carlos Unavailable Unavailable
--- OUTSIDE RECORDS SUMMARY | 2024-09-19 13:31 | XMS_ITS | Continuity of Care Document ---
Author Organization [facility] Address [address] [place] [address] Phone Care Team Providers Care Cost Consultant Name Role Phone Unavailable Unavailable Unavailable Allergies, [...] admin-adult or WO counseling-each add vaccine/toxoid aft [id number] Pneumococcal polysaccharide vaccine, 23- valent (Pneumo-Vax 23) [...] Encounter [facility], [address], [place], [place], [address] , [place] tel: [phone] [facility] [place] No Information 5 No Information OFFICE OUTPT EST 25 MIN [facility], [address], [place], [place], [address] , [place] tel: [phone] [facility] Routine medical examHyperlipide miaCOPDArthriti s 5 No Information OFFICE/OUTPA TIENT VISIT, EST [facility], [address], [place], [place], [address] , [place] tel: [phone] [facility] Behavioral Health follow up visits (chief complaint)h eadache (chief complaint)d epression (chief complaint) Episodic Cluster HeadacheOther abnormal glucoseOther and unspecified hyperlipidemiaD iabetes Mellitus Type 2, Uncomplicated 3 No Information [facility], [address], [place], [place], [address] , [place] tel: [phone] [facility] Behavior[facility] Laboratory examination, unspecifiedRout ine general medical examination at a health care facility 3 No Information OFFICE OUTPT EST 25 MIN [facility], [address], [place], [place], [address] , [place] tel: [phone] [facility] Behavior[facility] Health follow up visit (chief complaint)T MJ pain (chief complaint) Temporomandibul ar joint disorders, unspecified 3 No Information [facility], [address], [place], [place], [address] , [place] tel: [phone] [facility] No Information 3 No Information OFFICE OUTPT EST 25 MIN [facility], [address], [place], [place], [address] , [place] tel: [phone] [facility] Behavior[facility] Health folow up visit (chief complaint)T MJ joint pain (chief complaint) Temporomandibul ar joint disorders, unspecifiedDepr essive disorder, NECNondependent tobacco use disorder 3 No Information OFFICE OUTPT EST 25 MIN [facility], [address], [place], [place], [address] , [place] tel: [phone] [facility] Behavior[facility] follow up visit (chief complaint)e ar discomfort (chief complaint)a rthralgias (chief complaint) Temporomandibul ar joint disorders, unspecifiedOtal bassem, unspecified 3 No Information OFFICE/OUTPA TIENT VISIT, NEW [facility], [address], [place], [place], [address] , [place] tel: [phone] [facility] Behavior[facility] initial visit (chief complaint)e ar discomfort (chief complaint)p hysical exam (chief complaint)d epression (chief complaint) Unspecified otitis mediaDepressive disorder, NECNondependent tobacco use disorderRoutine general medical examination at a health care facility 3 No Information [facility], [address], [place], [place], [address] , [place] tel: [phone] [facility] Behavior[facility] Health [...] Record Payers Payer name Insurance type Covered republican ID Authoriza tion(s) Medicare PPS [id number] Medicare PPS [id number] Medicare PPS [id number] Social History Type Description Quantity Date Captured Comments Alcohol Use Details Unknown Caffeine Use Details Unknown Tobacco Use Status Smoking Status No Information Sex Male Chief Complaint And Reason For Visit No Information Reason For Referral Reason For Referral No Information Plan Of Treatment Date Type Action Status Goal PSA. Due on due Goal Urinalysis. Due on due Goal AST. Due on due Goal BMP fasting. Due on due Goal ALT. Due on due Goal ALT. Due on due Goal PSA. Due on due Goal Urinalysis. Due on due Goal BMP fasting. Due on due Goal AST. Due on due Goal ALT. Due on due Goal PSA. Due on due Goal BMP fasting. Due on due Goal Urinalysis. Due on due Goal AST. Due on due Goal Lipid Panel. Due on due Referral Referred To: [facility] Colonoscopy [address], [place], [phone] Ordered: Referrals: Gastroenterology. [facility] Colonoscopy. Evaluate and treat ordered Referral Referred To: [facility] [address] [place], [phone] Ordered: Referral: [facility]. ENT. Evaluate and treat. Appointment date/timeframe: 09/29/2012 ordered Referral Referred To: [facility] [address] [place], [phone] Ordered: Referral: [facility]. ENT. Appointment date/timeframe: 08/16/2012 ordered Unknown Immunization Tdap ordered Future Order: Lab Order HEPATIC FUNCTION PANEL ([id number]), Appointment on: , Sent on: Sent Future Order: Lab Order POC GLUC OSE ([id number]), Appointment on: , Sent on: Sent Future Order: Lab Order POC HEMO GLOBIN A1C ([id number]), Appointment on: , Sent on: Sent Future [...] you Td ap and Pneumovax -Please call [phone] to schedule Eye and Dental exams-We will give you a referral for Colonoscopy -We will also perform basic lab testing today: CBC, CMP, A1C -Please return in two months Related to Routine medical exam Assessments Type Assessment Date No Information Patient Care Teams Name Effective Dates (start - stop) Status Members No Information
[2024-09-19 13:58] LABS: Basophils Absolute Auto 0.1 K/mm3 (0.0-0.1); Basophils Percent Auto 0.4 % (0.2-1.2); Eosinophils Absolute Auto 0.1 K/mm3 (0-0.3); Eosinophils Percent Auto 0.4 % (0-4.4); Hematocrit 47.2 % (42.0-52.0); Hemoglobin 15.9 g/dL (14.0-18.0); Immature Granulocyte Absolute 0.12 K/mm3 (0.00-0.031); Immature Granulocyte Percent A 0.9 % (0-0.5); Lymphocytes Absolute Auto 2.06 K/mm3 (0.9-3.2); Lymphocytes Percent Auto 15.3 % (18.3-44.2); Mean Corpuscular HGB Conc 33.7 g/dl (32-36); Mean Corpuscular Hemoglobin 32.2 pg (26-34); Mean Corpuscular Volume 95.5 fl (80-100); Mean Platelet Volume 10.3 fl (7.4-10.4); Monocytes Absolute Auto 0.8 K/mm3 (0.1-0.6); Neutrophils Absolute Auto 10.3 K/mm3 (1.3-6.7); Platelet Count Result 253 k/mm3 (150-375); Red Blood Count 4.94 M/mm3 (4.6-6.20); Red Cell Distribution Width 13.7 % (11.5-14.5); White Blood Count 13.4 K/mm3 (4.5-10.0)
[2024-09-19 14:11] LABS: Prothrombin Time 13.2 Seconds (11.1-14.7)
[2024-09-19 14:12] LABS: Partial Thromboplastin Time 22.7 Seconds (22.3-36.8)
[2024-09-19 14:13] LABS: Alanine Aminotransferase 60 U/L (6-50); Alkaline Phosphatase 81 U/L (38-126); Aspartate Amino Transferase 43 U/L (17-59); Bilirubin,Total 0.6 mg/dL (0.2-1.3); Blood Urea Nitrogen 10 mg/dL (9-20); Carbon Dioxide 25 mmol/L (22-30); Estimated CRCL calculation 83 ml/min; Estimated Glomerular Filt Rate > 60
[2024-09-19 14:17] LABS: Albumin Level 4.3 g/dL (3.5-5.1); Anion Gap 10 mmol/L (4-12); Calcium 8.6 mg/dL (8.4-10.2); Chloride 105 mmol/L (98-107); Glucose 113 mg/dL (65-110); Magnesium 2.3 mg/dL (1.6-2.3); Potassium 3.7 mmol/L (3.4-5.0); Sodium 140 mmol/L (137-145)
[2024-09-19 14:34] LABS: D Dimer 0.42 ug/mL (<0.48)
--- NOTE | 2024-09-19 15:11 | ED_ITS ---
HPI - Extremity Injury (Lower) General Chief Complaint: Extremity Injury, Lower Stated Complaint: left groin pain Time Seen by Provider: 09/19/24 15:01 Source: patient and family Mode of arrival: ambulatory Limitations: no limitations History of Present Illness HPI Narrative: 64 years old white male came to the ED by private car complaining of pain at the left groin area radiating to the left buttocks and old way down to his left foot a started 9-10 days ago, was seen at [facility], then was seen by his family physician, started on narcotics and steroid. Patient is telling me that tonight will be running out of the narcotics and need a prescription refill. And he have 2 days to go for prednisone. Patient is scheduled for MRI tomorrow. Patient denies any fever, chills, nausea, vomiting, abdominal pain, back pain or recent injury. History of right sciatica. Patient is healthy otherwise. Related Data Allergies Allergy/AdvReac Type Severity Reaction Status Date / Time No Known Allergies Allergy Verified 09/13/24 13:17 Review of Systems 2 Review of Systems: All systems reviewed & are unremarkable except as noted in HPI and below Exam 2 Narrative: General appearance: Well-developed, well-nourished Skin: Normal color Head: Normocephalic, nontraumatic Eyes: Clear conjunctiva ENT: Oropharynx normal, ears normal, nose normal Neck: Supple, nontender Chest and respiratory: Airway patent, no respiratory distress, no accessory muscle use Heart: Regular rate/rhythm Abdomen: Soft, nontender, no organomegaly, quiet bowel sounds Vascular: Normal peripheral pulses, normal capillary refill. Musculoskeletal: Left lower extremity exam showing no bruises, no swelling, no deformity, no rash, slight limited range of motion on the left hip because of pain. Neurologic: Alert and oriented ?3, positive straight leg rising test on the left side Course Vital Signs Vital signs: Vital Signs Temperature 36.6 C 09/19/24 11:32 Pulse Rate 62 09/19/24 11:32 Respiratory Rate 20 09/19/24 11:32 Blood Pressure 153/83 H 09/19/24 11:32 Pulse Oximetry 98 09/19/24 11:32 Oxygen Delivery Room Air 09/19/24 11:32 Temperature 36.6 C 09/19/24 11:32 Pulse Rate 62 09/19/24 11:32 Respiratory Rate 20 09/19/24 11:32 Blood Pressure 153/83 H 09/19/24 11:32 Pulse Oximetry 98 09/19/24 11:32 Oxygen Delivery Room Air 09/19/24 11:32 MDM - Extremity Injury (Lower) MDM Narrative Medical decision making narrative: Patient came with left lower leg pain for 9 days Was seen by many medical providers in the last few days, came to our emergency room for pain management and a narcotic refill. Physical examination showing finding consistent with sciatica Differential diagnosis included sciatica versus muscular strain/sprain CT lumbar spine showed multiple bulging disc and spinal stenosis Patient is scheduled for MRI in the morning. The pt was discharged to home.the pt,s condition upon discharge was fair,education was provided to the pt in reference to the final impression,discharge study results,treatment,prognosis and need for follow up . Differential Diagnosis Differential diagnosis: Likely other (As above) Lab Data 09/19/24 13:48 09/19/24 13:48 Labs: Lab Results 09/19/24 Range/Units 13:48 WBC 13.4 H (4.5-10.0) K/mm3 RBC 4.94 (4.6-6.20) M/mm3 Hgb 15.9 (14.0-18.0) g/dL Hct 47.2 (42.0-52.0) % MCV 95.5 (80-100) fl MCH 32.2 (26-34) pg MCHC 33.7 (32-36) g/dl RDW 13.7 (11.5-14.5) % Plt Count 253 (150-375) k/mm3 MPV 10.3 (7.4-10.4) fl Immature Gran % (Auto) 0.9 H (0-0.5) % Neut % (Auto) 77.0 H (45.5-73.1) % Lymph % (Auto) 15.3 L (18.3-44.2) % Harney % (Auto) 6.0 (2.6-8.5) % Eos % (Auto) 0.4 (0-4.4) % Baso % (Auto) 0.4 (0.2-1.2) % Lymph # (Auto) 2.06 (0.9-3.2) K/mm3 Harney # (Auto) 0.8 H (0.1-0.6) K/mm3 Eos # (Auto) 0.1 (0-0.3) K/mm3 Baso # (Auto) 0.1 (0.0-0.1) K/mm3 Abs Immat Gran (auto) 0.12 H (0.00-0.031) K/mm3 Absolute Neuts (auto) 10.3 H (1.3-6.7) K/mm3 Absolute Nucleated RBC 0.000 (0.0-0.012) K/mm3 Nucleated RBC % 0.0 (0.0-0.2) % PT 13.2 (11.1-14.7) Seconds INR 1.0 APTT 22.7 (22.3-36.8) Seconds D-Dimer 0.42 (<0.48) ug/mL Sodium 140 (137-145) mmol/L Potassium 3.7 (3.4-5.0) mmol/L Chloride 105 (98-107) mmol/L Carbon Dioxide 25 (22-30) mmol/L Anion Gap 10 (4-12) mmol/L BUN 10 D (9-20) mg/dL Creatinine 0.79 (0.7-1.3) mg/dL Estim Creat Clear Calc 83 ml/min Estimated GFR > 60 (59 - ) Glucose 113 H (65-110) mg/dL Calcium 8.6 (8.4-10.2) mg/dL Magnesium 2.3 (1.6-2.3) mg/dL Total Bilirubin 0.6 (0.2-1.3) mg/dL AST 43 (17-59) U/L ALT 60 H (6-50) U/L Alkaline Phosphatase 81 (38-126) U/L Total Protein 7.0 (6.3-8.2) g/dL Albumin 4.3 (3.5-5.1) g/dL Imaging Data Radiologist's impression: Impressions Lumbar Spine CT 09/19/24 15:54 IMPRESSION: No fracture or dislocation. Multilevel disc bulges with narrowing of the left foramina at the level of L4-L5 with highly suggestive of nerve root compression. MRI is better for evaluation. Mild spinal canal stenosis at the level of L4-L5. Critical Care Time Critical Care Time Critical Care Time: No Discharge Plan Discharge Clinical Impression: Sciatica Patient Disposition: Home Condition: Stable Instructions: Lumbar Radiculopathy (ED) Patient Language: Macanese Prescriptions: No Action prednisone 10 mg tablets,dose pack See Rx Instructions .ROUTE .COMPLEX 7 Days Qty: 20 0RF Taper: Prednisone Taper from 60 mg;12 days 60 mg DAILY for 2 Days and 0 Hour 50 mg DAILY for 2 Days and 0 Hour 40 mg DAILY for 2 Days and 0 Hour 30 mg DAILY for 2 Days and 0 Hour 20 mg DAILY for 2 Days and 0 Hour 10 mg DAILY for 2 Days and 0 Hour Rx Instructions: Take 40mg (4 tabs) on days 1 and 2, 30mg ( 3 tabs) on days 3 and 4, 20mg (2 tabs) on days 5 and 6, and 10mg (1 tab (on and 8), starting 09/14; Dispense sufficient (20) diazepam [Valium] 5 mg tablet 5 mg PO HS PRN (Reason: muscle spasm) Qty: 7 0RF acetaminophen 500 mg capsule 1,000 mg PO Q6H PRN (Reason: pain) Qty: 30 0RF ibuprofen 600 mg tablet 600 mg PO TID PRN (Reason: pain) Qty: 30 0RF Follow-up/Referrals: Flori,Abdi Crews MD [Primary Care Provider] -
[2024-09-19] MEDS: ONDANSETRON INJ 4 MG/2 ML VIAL IV PUSH (15:49)
[2024-09-19] MEDS: HYDROmorphone HCL INJ (*CRX) 2 MG/ML VIAL 0.5 MG IV PUSH (15:49)
[2024-09-19 17:33] VITALS: BP 123/79; PULSE 80; RESP 16; O2SAT 100
== END 2024-09-19 17:34 | disposition home or self-care (01) ==
PROVIDERS: Physician Assistant; Emergency Provider Emergency Medicine; PCP Internal Medicine
DX: M54.32 Sciatica, left side (principal)
CPT/HCPCS: 36415; 72131; 80053; 83735; 85025; 85380; 85610; 85730; 96374; 96375; 99284; J1171; J2405

== ENCOUNTER 2024-09-20 14:10 | Outpatient (CLI) | payer BC, SELFPAY ==
--- NOTE | ~2024-09-20 | MR_ITS ---
EXAMINATION: MR lumbar spine wo con DATE: 09/20/2024 14:39 INDICATION: Left-sided low back pain with sciatica TECHNIQUE: Magnetic resonance imaging (MRI) of the lumbar spine was performed without intravenous con trast. Sequences included sagittal T2-weighted FSE, sagittal T2-weighted FS FSE, sagittal T1-weighted FSE, and axial T2-weighted FSE. COMPARISON: None FINDINGS: Alignment is normal. Vertebral body heights are normal. Normal marrow signal. Disc desiccation with mild disc height loss at L4-L5. Mild disc desiccation without disc height loss at L2-L3. The conus me dullaris terminates at L1-L2. There is normal signal in the caudal spinal cord. Paravertebral soft ti ssues are unremarkable. The following disc levels are specifically discussed: T12-L1: The disc does not extend beyond the endplate margin. There is moderate bilateral facet joint osteoarthritis. There is no neural foraminal stenosis. There is no central canal stenosis. L1-L2: The disc does not extend beyond the endplate margin. There is mild bilateral facet joint osteo arthritis. There is no neural foraminal stenosis. There is no central canal stenosis. L2-L3: Disc is mildly bulging. There is moderate bilateral facet joint osteoarthritis. There is mild bilateral neural foraminal stenosis. There is mild central canal stenosis. L3-L4: Disc is mildly bulging. There is mild to moderate bilateral facet joint osteoarthritis. There is mild bilateral neural foraminal stenosis. There is mild central canal stenosis. L4-L5: Disc is bulging There is mild left and mild to moderate right facet joint osteoarthritis. Ther e is mild right and moderate left neural foraminal stenosis. There is mild central canal stenosis. L5-S1: Disc is mildly bulging. There is mild bilateral facet joint osteoarthritis. There is minimal b ilateral neural foraminal stenosis. There is no central canal stenosis. IMPRESSION: 1. Mild lumbar spondylosis most notable for moderate neural foraminal stenosis on the left at L5-S1. Reviewed, dictated and finalized at location A.
== END 2024-09-20 14:11 | disposition home or self-care (01) ==
LOC: GOSHIMG 14:10
PROVIDERS: PCP Internal Medicine; Visit Provider Internal Medicine
DX: M47.816 Spondylosis without myelopathy or radiculopathy, lumbar region (principal); M48.07 Spinal stenosis, lumbosacral region; M54.41 Lumbago with sciatica, right side; G89.29 Other chronic pain
CPT/HCPCS: 72148